=== PATIENT | female | born 1980 | race Caucasian/White ===

== ENCOUNTER 2020-09-08 00:04 | Emergency (ER) | payer OTHER, MEDICAID, SELFPAY ==
[2020-09-08 00:05] VITALS: BP 163/98; PULSE 80; RESP 16; TEMP 35.9; O2SAT 99; BMI 36.3
[2020-09-08 00:10] VITALS: BP 163/98; PULSE 80; RESP 16; TEMP 35.9; O2SAT 99
--- NOTE | 2020-09-08 00:16 | ED.VIS.BACK ---
HPI History of Present Illness Chief Complaint: Back Narrative Narrative: Patient presenting with back pain. She states it was hurting her last week. She has been using heat and muscle relaxers and had some improvement. She states that today she was picking up a box and felt a pop and now she has pain radiating to her left gluteal region and lateral aspect of the right leg. She has had surgery on her lumbar spine in the past. No loss of bladder or bowel control. There was no direct traumatic injury to the back. Patient states she is actively trying to get and she is not sure if she is . She wishes to be tested. [facility] Medical History Back complaints Home Medications cyclobenzaprine 10 mg PO TID PRN #20 tablet 06/04/15 [Rx Last Taken Unknown] hydrocodone-acetaminophen 1 - 2 tab PO Q4H PRN PRN #12 tablet 06/04/15 [Rx Last Taken Unknown] naproxen 500 mg PO BID PRN #20 tab 06/04/15 [Rx Last Taken Unknown] prednisone 50 mg PO DAILY #3 tab 09/08/20 [Rx Last Taken Unknown] Allergy/AdvReac Type Severity Reaction Status Date / Time No Known Allergies Allergy Verified 06/04/15 08:10 Surgical History History of cholecystectomy Social History Smoking Status: Current every day smoker ROS [facility] ED Constitutional Constitutional ED: Denies chills, fever(s) or sweats Cardiovascular Cardiovascular: Denies chest pain, palpitations or racing heartbeat Respiratory/Chest Respiratory/Chest: Denies cough, dyspnea or sputum Gastrointestinal Gastrointestinal: Denies abdominal pain, constipation, diarrhea or vomiting Genitourinary Genitourinary ED: Denies dysuria, hematuria or urinary frequency Musculoskeletal Musculoskeletal: Reports back pain; Denies arthralgias, myalgias or neck pain Integumentary Denies abscess, Abrasions or rash Neurologic Neurologic: Denies headache(s), paresthesias or weakness Psychiatric Psychiatric: Denies anxiety, depression, suicidal ideation or suicidal thoughts Endocrine Endocrinology: Denies polydipsia or polyuria EXAM Physical Exam Const Vital Signs: 09/08/20 00:05 09/08/20 00:10 Temperature 96.7 F L 96.7 F L Temperature Source Temporal Temporal Pulse Rate 80 80 Respiratory Rate 16 16 Blood Pressure 163/98 H 163/98 H Blood Pressure Mean 119 119 Pulse Ox 99 99 Oxygen Delivery Method Room Air Room Air General Appearance ED: Negative for pallor HEENT Reports normocephalic, head/scalp atraumatic and moist mucous membranes Negative for trauma Eyes PERRL and EOMs intact bilaterally Chest Wall inspection of chest normal and palpation of chest normal Resp normal respiratory effort and clear to auscultation bilaterally Auscultation: Negative for rales, rhonchi or wheezes Cardio regular rate and regular rhythm GI Auscultation: normoactive bowel sounds Palpation: soft Narrative: Deferred Back/Spine no CVA tenderness Back/Spine Narrative: Tenderness palpation of the lumbar spine approximately L3-L5. no deformity or step-offs. General Back: Negative for CVA tenderness Cervical Spine: Negative for cervical spine tenderness Extremity normal to inspection General Extremety ED: Yes edema and tenderness General Extremity: edema Neuro oriented x3 and CN's II-XII intact bilaterally Sensorium / Orientation: alert Motor Exam: strength 5/5 throughout Psych mental status grossly normal Attitude: No agitated Skin no rashes or lesions noted and no wounds General Skin Exam: Negative for jaundice or pallor MDM MDM MDM Narrative Medical decision making narrative: Patient presents after injuring her back for the second time this week. She felt a pop in her back. She does have some tingling down the lateral side of her leg on the right. Patient given Norflex and prednisone 60 mg. Patient had x-ray of the lumbar spine which shows degenerative changes but no acute fracture, subluxation. Disc heights are maintained and this is interpreted by myself and the radiologist does agree. Patient will be sent home with a burst of prednisone and she will follow up with occasional health. Patient stable for discharge. Impression: 1. Lumbar strain Lab Data Attestation: I reviewed the patient's lab results. Labs: Laboratory Results - last 24 hr 09/08/20 00:22 Urine Test Negative Radiography Diagnostic Testing: Radiology Impression Lumbar Spine X-Ray 09/08/20 00:37 IMPRESSION: Postoperative changes as described. Underlying degenerative disease. No acute fracture or subluxation. Electronically Signed: Maria Luisa Heaton MD at 1:13 EDT , Service support , Discharge Plan Triage Chief Complaint: Back ED Provider: Brandon Perez Dx/Rx/DC Orders Prescriptions: New prednisone 50 mg tablet 50 mg PO DAILY Qty: 3 RF: 0 No Action cyclobenzaprine 10 MG tablet 10 mg PO TID PRN (Reason: Muscle Spasm) Qty: 20 RF: 0 hydrocodone-acetaminophen 1 TABLET tablet 1 - 2 tab PO Q4H PRN PRN (Reason: Pain) Qty: 12 RF: 0 naproxen 500 MG tablet 500 mg PO BID PRN Qty: 20 RF: 0 Primary Care Provider: Care Physician,No Primary Referrals: Care Physician,No Primary [Primary Care Provider] - Disposition Disposition: Home, self care
[2020-09-08 00:33] LABS: Internal QC Validated? YES +Cl - CLEAR BKGD; Pregnancy, Urine Negative Negative
--- NOTE | 2020-09-08 00:37 | RAD_ITS ---
STUDY: X-RAY - LUMBAR SPINE REASON FOR EXAM: Female, 39 years old. back pain TECHNIQUE: 3 view(s) of the lumbar spine were obtained. COMPARISON: None FINDINGS: Normal lumbar lordosis. There is no substantial scoliosis. There is a normal alignment of the vertebrae. The patient is status post anterior and posterior fusion at L5-S1. There is multilevel endplate spondylosis of the lumbar vertebrae. Normal disc space heights. There is no demonstrated fracture. Right upper quadrant surgical clips seen. RAD/Lumbar Spine 2 or 3 Views IMPRESSION: Postoperative changes as described. Underlying degenerative disease. No acute fracture or subluxation. Electronically Signed: Maria Luisa Heaton MD at 1:13 EDT , Service support ,
[2020-09-08] MEDS: predniSONE 20 MG Tablet 60 MG PO (00:57)
[2020-09-08] MEDS: Orphenadrine 100 MG Tablet PO (01:27)
[2020-09-08 01:34] VITALS: BP 136/82; PULSE 72; RESP 15; O2SAT 94
== END 2020-09-08 01:50 | disposition home or self-care (01) ==
PROVIDERS: Emergency Provider Student in an Organized Health Care Education/Training Program
DX: S39.012A Strain of muscle, fascia and tendon of lower back, initial encounter (principal); X50.0XXA Overexertion from strenuous movement or load, initial encounter; Y93.89 Activity, other specified; Y92.9 Unspecified place or not applicable; Y99.0 Civilian activity done for income or pay; M51.36 Other intervertebral disc degeneration, lumbar region; F17.200 Nicotine dependence, unspecified, uncomplicated
CPT/HCPCS: 72100; 81025; 99283